=== PATIENT | male | born 1955 | race Caucasian/White ===

== ENCOUNTER 2022-03-19 15:19 | Outpatient (CLI) | payer OTHER, SELFPAY ==
[2022-03-19 18:21] LABS: Microalbumin Creatinine Ratio 10 mg/g (0-30); Microalbumin Urine < 1 mg/dL
== END 2022-03-19 15:20 | disposition home or self-care (01) ==
LOC: FBOREF 15:19
PROVIDERS: PCP Family Medicine; Visit Provider Family Medicine
DX: E11.9 Type 2 diabetes mellitus without complications (principal); I10 Essential (primary) hypertension
CPT/HCPCS: 82043; 82570

== ENCOUNTER 2022-06-20 14:03 | Outpatient (CLI) | payer OTHER, SELFPAY ==
--- NOTE | 2022-06-20 14:30 | MR_ITS ---
[address] [address] Phone:?[phone] Fax:?[phone] Referring Physician Information: Antonio Vo M.D. [id number] [facility] [address] Phone:?[phone] Fax:?[phone] Patient:?Clive Merchant D.O.B:?1955 Sex:?Male Phone:?[phone] [facility] MRN:?[id number] Exam Date:?06/20/2022 ? EXAM: MRI OF THE RIGHT SHOULDER CLINICAL INFORMATION: The patient is a 67-year-old with right shoulder pain. Evaluate for rotator cuff tear. PRIOR SURGERY: None reported. COMPARISON STUDIES: Comparison is made to prior radiographs dated 06/18/2022. TECHNICAL INFORMATION: Using a 1.5T MR scanner and a localizing shoulder surface coil: 3.0 mm?coronal obliques: PD, T2, STIR 3.0 mm?sagittal obliques: PD, T2 3.0 mm?axials: PD, T2 FINDINGS: Articular/Extraarticular collections: Effusion: Moderate. Low signal intensity debris within the joint space can be seen, in keeping with synovitis. Loose bodies within the joint space are also present, the largest of which measures approximately 13 mm in greatest dimension. Subacromial/subdeltoid: No evidence for bursitis. Subcoracoid: No evidence for bursitis. Osseous structures: Proximal humerus: Osteoarthritic changes are seen involving the proximal humerus with flattening and irregularity of the articular surfaces and prominent spurring along the articular margins. There is signal change along the medial and superomedial aspects of the humeral head seen on coronal series 4 image 18 and on axial series 3 image 14, measuring approximately 26 mm in craniocaudal dimension, 28 mm in anteroposterior dimension, and 15 mm in mediolateral dimension. The findings may relate to changes of avascular necrosis along the articular surfaces. No definite evidence for greater or lesser tuberosity fracture can be seen. No Hill-Sachs or reverse Hill-Sachs lesion is identified. Glenoid: Osteoarthritic changes along the articular surfaces of the glenoid can be seen. There is no evidence for fracture or acute bony injury. Acromioclavicular joint: Mild to moderate changes of acromioclavicular joint arthrosis are present and can be seen on coronal series 4 image 9. Coracoacromial arch: Acromion morphology: Type II. No evidence for os acromiale. Acromiohumeral space: Within normal limits. Coracohumeral space: Within normal limits. Rotator cuff and deltoid: Supraspinatus: The supraspinatus tendon demonstrates changes of moderate tendinosis with partial-thickness deep surface tearing seen on coronal series 4 image 13 and measuring approximately 8 mm in greatest dimension. The tearing involves up to 60% of the tendon thickness, however no full-thickness tearing or retraction is seen. Mild atrophic changes of the supraspinatus muscle belly are present. Infraspinatus: Mild to moderate infraspinatus tendinosis can be seen. There is no evidence for full or partial-thickness tearing. Mild atrophic changes of the infraspinatus muscle belly are present. Teres minor: No definite injuries to the teres minor tendon are seen, however moderate atrophic changes of the teres minor muscle belly are seen. Subscapularis: Moderate subscapularis tendinosis can be seen with intrasubstance splitting. No full-thickness tearing or retraction is present. Mild atrophic changes of the subscapularis muscle belly are identified. Deltoid: No evidence for strain or tearing. Biceps tendon: Mild tendinosis and flattening of the long head of the biceps can be seen. No evidence for biceps rupture or rob dislocation is identified. Glenohumeral joint and labrum: Articular Cartilage: Broad-based areas of full-thickness chondral loss can be seen along the articular surfaces of the glenohumeral articulation. There is flattening and irregularity of the articular surfaces with areas of subcortical cystic change and subcortical edema. Prominent spurring along the articular margins can be seen and the findings are in keeping with moderate to severe osteoarthritic change. 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 Labrum: Degeneration and poorly defined tearing of the entire glenoid labrum can be seen. No definite paralabral ganglion cyst formation is identified. Capsular Soft Tissues: No definite capsular abnormalities of the glenohumeral joint are seen. No evidence for capsular tearing is present and there are no MR signs of adhesive capsulitis. CONCLUSION: 1. Moderate supraspinatus tendinosis with partial-thickness intrasubstance and deep surface tearing as described above. 2. Moderate subscapularis tendinosis with intrasubstance splitting. 3. Mild to moderate infraspinatus tendinosis. 4. Mild tendinosis and flattening of the long head of the biceps. 5. 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 6. Degeneration and tearing of the glenoid labrum. 7. Glenohumeral joint effusion with synovitis and intra-articular loose bodies. [facility] Electronically signed on 06/21/2022 7:43:00 AM by Mike Hamilton M.D.
== END 2022-06-20 14:04 | disposition home or self-care (01) ==
LOC: MRI 14:04
PROVIDERS: PCP Family Medicine; Visit Provider Orthopaedic Surgery
DX: M19.011 Primary osteoarthritis, right shoulder (principal); S46.911A Strain of unspecified muscle, fascia and tendon at shoulder and upper arm level, right arm, initial encounter; S43.431A Superior glenoid labrum lesion of right shoulder, initial encounter; M25.411 Effusion, right shoulder
CPT/HCPCS: 73221

== ENCOUNTER 2022-10-30 11:59 | Outpatient (CLI) | payer OTHER, SELFPAY | END 2022-10-30 12:00 | disposition home or self-care (01) | LOC: NFLDREF 10-31 14:27 | PROVIDERS: PCP Family Medicine; Referring Provider Family Medicine; Visit Provider Family Medicine | DX: I10 Essential (primary) hypertension (principal); E11.9 Type 2 diabetes mellitus without complications; E78.5 Hyperlipidemia, unspecified; Z12.5 Encounter for screening for malignant neoplasm of prostate | CPT/HCPCS: 80048; 80061; 84153 ==

== ENCOUNTER 2023-12-06 10:16 | Outpatient (CLI) | payer OTHER, SELFPAY | END 2023-12-06 10:17 | disposition home or self-care (01) | LOC: FBOREF 10:18 | PROVIDERS: PCP Family Medicine; Visit Provider Family Medicine | DX: E78.2 Mixed hyperlipidemia (principal); I10 Essential (primary) hypertension; E11.9 Type 2 diabetes mellitus without complications; R53.83 Other fatigue | CPT/HCPCS: 80048; 80061; 84443; G0103 ==

== ENCOUNTER 2024-06-18 11:20 | Outpatient (CLI) | payer MEDICARE, SELFPAY | END 2024-06-18 11:21 | disposition home or self-care (01) | PROVIDERS: PCP Family Medicine; Visit Provider Family Medicine | DX: E78.2 Mixed hyperlipidemia (principal); I10 Essential (primary) hypertension | CPT/HCPCS: 80048; 84460; 85025 ==

== ENCOUNTER 2024-09-18 12:35 | Outpatient (CLI) | payer MEDICARE, SELFPAY ==
--- NOTE | 2024-09-18 13:00 | CRLHL7_ITS ---
For Patients: As a result of the Century Cures Act, medical imaging exams and procedure reports are released immediately into your electronic medical record. You may view this report before your referring provider. If you have questions, please contact your health care provider. Indication: RENAL ATROPHY Technique: Noncontrast CT of the abdomen and pelvis was obtained. Please note that all CT scans at this facility use dose modulation, iterative reconstruction, and/or weight-based dosing when appropriate to reduce radiation dose to as low as reasonably achievable. Comparison: CT report 01/19/2017. Findings: Lower thorax: Normal. Liver and biliary tree: Moderate hepatic steatosis. Gallbladder: Normal. Spleen: Normal noncontrast appearance. Pancreas: Mild fatty atrophy. Adrenal glands: Normal noncontrast appearance. Kidneys and ureters: Atrophic right kidney. Bilateral renal cysts. No hydronephrosis or obstructing renal calculi. Gastrointestinal tract: Moderate to severe descending and sigmoid colonic diverticulosis without CT evidence of acute diverticulitis. Moderate stool burden. No evidence of acute appendicitis. No evidence of bowel obstruction. Peritoneal cavity: Normal. Bladder: Mild wall thickening. Pelvic organs: Moderately enlarged prostate. Vasculature: Mild calcification. Lymph nodes: Normal. Abdominal wall: Small fat containing periumbilical hernia. Trace fat containing bilateral inguinal hernias. Musculoskeletal: Mild degenerative changes of the visualized spine. Mild degenerative changes of the bilateral hips. Impression: 1. Atrophic right kidney. Bilateral renal cysts. No hydronephrosis or obstructing renal calculi. 2. Moderate stool burden without evidence of bowel obstruction. Moderate to severe descending and sigmoid colonic diverticulosis without CT evidence of acute diverticulitis. 3. Moderate hepatic steatosis. Please note that all CT scans at this facility use dose modulation, iterative reconstruction, and/or weight-based dosing when appropriate to reduce radiation dose to as low as reasonably achievable. Dictated by Amador Mendoza MD @ 09/18/2024 1:16:54 PM (Electronically Signed)
== END 2024-09-18 12:36 | disposition home or self-care (01) ==
PROVIDERS: PCP Family Medicine; Visit Provider Family Medicine
DX: N26.1 Atrophy of kidney (terminal) (principal); N28.1 Cyst of kidney, acquired; K57.30 Diverticulosis of large intestine without perforation or abscess without bleeding; K76.0 Fatty (change of) liver, not elsewhere classified
CPT/HCPCS: 74176